=== PATIENT | female | born 1965 | race Caucasian/White ===

== ENCOUNTER → 2024-04-25 10:46 | Outpatient (REF) | payer BC, SELFPAY | LOC: WDC 10:46 | PROVIDERS: ATTENDING PHYSICIAN Student in an Organized Health Care Education/Training Program | DX: Z12.31 Encounter for screening mammogram for malignant neoplasm of breast (principal) | CPT/HCPCS: 77063; 77067 ==

== ENCOUNTER → 2025-04-27 11:40 | Outpatient (REF) | payer BC, SELFPAY | LOC: WDC 11:40 | PROVIDERS: ATTENDING PHYSICIAN Student in an Organized Health Care Education/Training Program | DX: Z12.31 Encounter for screening mammogram for malignant neoplasm of breast (principal) | CPT/HCPCS: 77063; 77067 ==

== ENCOUNTER 2025-09-16 12:01 | Emergency (ER) | payer BC, SELFPAY ==
[2025-09-16 12:05] VITALS: BP 170/102
[2025-09-16 12:41] LABS: Hematocrit 43.6 % (37.0-47.0); Hemoglobin 14.4 g/dL (12.0-16.0); Mean Corp Hgb Conc. 33.0 g/dL (33.0-37.0); Mean Corpuscular Volume 84.8 fL (81.0-99.0); Nucleated Red Blood Cells % 0 %; Platelet Count 267 10^3/uL (130-400); Red Cell Dist. Width 14.1 % (11.5-14.5)
--- NOTE | 2025-09-16 12:45 | ED.GENMED ---
History of Present Illness
General
Chief Complaint: Breathing Problem
Time Seen by Provider: 09/16/25 12:45
History of Present Illness
History of Present Illness:
FOCUSED PAST MEDICAL HISTORY
- Asthma
REVIEW OF OLD RECORDS
- No old records available for review in [facility]
Note:
CHIEF COMPLAINT(S)
Shortness of breath and potential asthma exacerbation.
HISTORY OF PRESENT ILLNESS
The patient is a 60-year-old female with a history suggestive of asthma, presenting with shortness of breath. Symptoms onset recently, and the patient describes symptoms consistent with an asthma exacerbation. The patient reports feeling 'like an
asthma attack.' Breathing is noted to be somewhat decreased. The patient denies usual use of supplemental oxygen at home. She does not recall recent steroid use, and it has been at least 10 years since she would have needed them.
The patient recently completed a course of Nitrofurantoin (Macrobid) for a urinary tract infection as of last night, and she inquired about its potential role in triggering asthma symptoms. However, she has not experienced any history of chills or
significant systemic symptoms that would indicate other causative factors, such as a virus, though this was considered a possibility.
Initial assessment reveals the patient to have decreased breath sounds with mild respiratory distress. Her oxygen saturation was documented at 92% on room air, and she presented with tachycardia.
PAST MEDICAL AND SURGICAL HISTORY
Resolved urinary tract infection treated with Macrobid.
CHRONIC MEDICAL CONDITIONS SIGNIFICANTLY AFFECTING CARE
Asthma.
REVIEW OF SYSTEMS
- Respiratory: Shortness of breath, decreased breath sounds noted during examination.
- Cardiovascular: Tachycardia.
- General: Fever noticed.
PHYSICAL EXAM
General: Mild respiratory distress.
Respiratory: Decreased breath sounds, room air saturation at 92%, tachycardic.
Cardiovascular: Tachycardic without noted wheezing.
PLAN
- Administer breathing treatments including intravenous magnesium and intravenous steroids.
- Order chest X-ray to assess the pulmonary status.
- Provide Tylenol for fever management.
- Consider the potential role of a viral infection in symptom exacerbation.
- Monitor oxygen saturation and overall respiratory status.
DIFFERENTIAL DIAGNOSIS
The Differential Diagnosis includes, in no particular order and is not limited to:
1. Asthma exacerbation
2. Viral respiratory infection
3. Bacterial pneumonia
4. Congestive heart failure
5. Chronic obstructive pulmonary disease (COPD) exacerbation
6. Pulmonary embolism
7. Allergic reaction
8. Medication side effects
9. Anxiety-induced hyperventilation
10. Bronchitis
RADIOLOGY
- Chest x-ray obtained which shows no obvious sign of pneumonia
EKG
- Sinus 104, normal axis, nonspecific ST abnormality
LABS
- White count 14.4, hemoglobin normal, lactic 1.9
UPDATE
-SUMMARY OF ENCOUNTER
The patient, a 60-year-old female with a history of asthma, presented to the emergency department with symptoms indicative of an asthma exacerbation. She experienced shortness of breath, decreased breath sounds, and an oxygen saturation of 92% on
room air. Upon arrival, she was found to be tachycardic. The patient recently recovered from a urinary tract infection treated with Nitrofurantoin, and she questioned its potential role in her current respiratory symptoms. She denied any use of
supplemental oxygen at home or recent steroid use. The patient was managed with breathing treatments including intravenous magnesium and steroids, which improved her symptoms. Influenza and COVID-19 tests were negative, but her asthma exacerbation
was suspected to be possibly triggered by a viral illness due to the presence of fever. The patient was also given Tylenol for fever management. Blood cultures were taken to rule out bacterial infection, with no immediate concerns observed.
DISPOSITION
The patient is deemed stable for discharge with outpatient management.
ASSESSMENT
Asthma exacerbation, most likely triggered by a viral infection.
EMERGENCY TREATMENTS ADMINISTERED
- Intravenous magnesium
- Intravenous steroids
PLAN
- Prescribe Albuterol inhaler
- Initiate oral steroids for a course of four days
- Recommend Tylenol for fever management
- Advise the patient to return if symptoms worsen
INDEPENDENT REVIEW OF LABS AND INTERPRETATION OF TESTS
My independent review includes negative influenza and COVID-19 test results.
PATIENT EDUCATION AND COUNSELING
The patient was advised on the potential viral nature of her asthma exacerbation. She was instructed to use Tylenol for fever and chills and to return to the emergency department if her symptoms worsened.
FOLLOW-UP INSTRUCTIONS
Please follow up with your primary care physician or labor law professor to ensure proper management of asthma and assess response to treatment.
MEDICATION RECONCILIATION
- Albuterol inhaler prescribed
- Oral steroids initiated for a few days
MEDICAL DECISION MAKING
1. Number and Complexity of Problems Addressed:
Chronic conditions affecting care: Asthma
DDx list: Asthma exacerbation, Viral respiratory infection, Bacterial pneumonia, Congestive heart failure, COPD exacerbation, Pulmonary embolism, Allergic reaction, Medication side effects, Anxiety-induced hyperventilation, Bronchitis
2. Data:
Category 1:
- Influenza and COVID-19 tests conducted with negative results.
Category 3:
- Discussion of management with the patient regarding potential discharge and prescriptions.
3. Risk:
Prescription medication was prescribed: Albuterol inhaler and oral steroids.
DIAGNOSIS
- Asthma exacerbation (ICD-10: J45.901)
I did have the patient walk around in the Emergency Department and her sat stated 93% on room air and she reports overall significant improvement. Will start steroids and give new inhaler prescription.
Phy Exam
Physical Exam
Physical Exam:
See HPI
Scores
Heart Failure Risk
Heart Failure Risk Score: Not Applicable
Sepsis
Sepsis Screening
Sepsis Assessment: Sepsis Ruled Out
Sepsis Screen
Sepsis Screen: Sepsis Ruled Out
Date: 09/16/25
Time: 15:54
Course
Orders/Labs/Results
Orders:
Orders
09/16/25 12:09
EKG [Electrocardiogram (*1)] Urgent
Reason for Study: Shortness of Breath
EKG- Treatment ONCE
09/16/25 12:34
COVID-19 Antigen Urgent
Source: Nasal Swab
Complete Blood Count/With Diff Urgent
Comprehensive Metabolic Panel Urgent
Lactic Acid Urgent
Blood Culture Urgent
ROMAN Source: Blood/Venous
Specimen Description:
Influenza A+B Rapid Molecular Urgent
ROMAN Source: Nasal Swab
Specimen Description:
09/16/25 12:39
Blood Culture Urgent
ROMAN Source: Blood/Venous
Specimen Description:
09/16/25 13:12
Acetaminophen [Tylenol] 1,000 mg PO NOW STA
Albuterol Nebs [Ventolin Nebules] 2.5 mg INH R NOW STA
Dexamethasone Sod Phosphate [Decadron] 10 mg IV NOW STA
Magnesium Sulfate 2 Gram/50 ml [Magnesium Sulfate] 2 gram in 50 ml IV NOW
09/16/25 13:13
CR Chest Portable - 1 View Urgent
Comment:
Reason For Exam: sob asthma fever
Reason Study Needs to be Portable: Unable to Transport
Abnormal Lab Results
09/16/25
12:34
WBC 14.4 H 10^3/uL
(4.8-10.8)
Abs Immat Gran (auto) 0.1 H 10^3/uL
(0-0.05)
Absolute Neuts (auto) 12.3 H 10^3/uL
(1.4-6.5)
Absolute Lymphs (auto) 0.6 L 10^3/uL
(1.2-3.4)
Absolute Monos (auto) 0.8 H 10^3/uL
(0.1-0.6)
Neutrophils % 85.4 H %
(42.2-75.2)
Lymphocytes % 4.5 L %
(20.5-51.1)
Glucose 129 H mg/dl
(70-99)
Total Bilirubin 1.6 H mg/dl
(0.2-1.3)
Total Protein 8.8 H g/dl
(6.3-8.2)
09/16/25 12:34
09/16/25 12:34
Vital Signs
Initial and Last Documented VS:
Initial Vital Signs
Temp Pulse Resp BP Pulse Ox
38.8 C H 120 30 170/102 91
09/16/25 12:05 09/16/25 12:05 09/16/25 12:05 09/16/25 12:05 09/16/25 12:05
Last Documented Vital Signs
Temp Pulse Resp BP Pulse Ox
38.8 C H 95 15 129/82 91
09/16/25 12:05 09/16/25 15:00 09/16/25 15:00 09/16/25 15:00 09/16/25 15:15
*Pulse Oximetry
SaO2: 91
Nasal Cannula flow liters per minute: 4
Oxygen Mode of Delivery: Room air
Patient hypoxic: yes (Borderline hypoxic at times initially 90 to 91% and then 93% at time of discharge)
*Critical Care Note
Total Time (30-74mins, 75-104mins- exclusive of procedures): Not Applicable
ED Attending Note
-
Portions of this chart may have been created with voice recognition software.� Occasional wrong word or��sound alike� substitutions may have occurred due to the inherent limitations of voice recognition software.
Discharge Plan
Departure
Patient Disposition: Home (Routine Discharge)
Date of Disposition: 09/16/25
Time of Disposition: 15:13
Patient with high blood pressure during this ER visit?: Yes
Discharge Problem:
Asthma attack
Instructions: Asthma in adults - ED (DC), BLOOD PRESSURE
Prescriptions:
New
albuterol sulfate [Ventolin HFA] 90 mcg/actuation HFA aerosol inhaler
2 puff inhalation Q6H PRN (Reason: shortness of breath or wheezing) Qty: 8.5 0RF
prednisone 50 mg tablet
50 mg PO DAILY Qty: 4 0RF
Referrals:
Frank Shrestha MD [Family Provider, Family Practice]
Activity Restrictions/Additional Instructions:
Your white blood cell count is elevated however there is no sign of pneumonia on x-ray and I did not hear sounds of pneumonia when I listen to you. Your flu and COVID test are both negative. We gave you IV magnesium, IV steroids, and breathing
treatments. I sent a prescription for a new inhaler and steroids to your pharmacy. Return if worse or other concerns.
Interventions
Interventions:
*Risk Screen - Suicide Last Done: 09/16/25 12:05
*General Assessment Last Done: 09/16/25 12:05
*Neglect/Abuse Screening Last Done: 09/16/25 12:05
*ED- Fall Risk Assessment Last Done: 09/16/25 12:05
*ED COVID-19 Vaccine History Last Done: 09/16/25 12:05
*ED Influenza Vaccine History Last Done: 09/16/25 12:05
*Nursing Disposition Last Done: 09/16/25 15:52
ED- Cardiac Assessment Last Done: 09/16/25 12:42
ED- Pulmonary Assessment Last Done: 09/16/25 12:42
Discharge Date and Time
Print Language: GERMAN
[2025-09-16 12:55] LABS: ALT (SGPT) 25 U/L (0-35); AST (SGOT) 22 U/L (14-36); Albumin 5.0 g/dl (3.5-5.0); Alkaline Phosphatase 110 U/L (38-126); Blood Urea Nitrogen 11 mg/dl (7-17); Calcium 9.7 mg/dl (8.4-10.2); Carbon Dioxide 23 mmol/L (22-30); Chloride 104 mmol/L (98-107); Glucose 129 mg/dl (70-99); Potassium 4.2 mmol/L (3.5-5.1); Sodium 136 mmol/L (135-145); Total Protein 8.8 g/dl (6.3-8.2); eGFR > 60.00
[2025-09-16 13:06] LABS: COVID-19 Antigen Negative (Negative)
[2025-09-16] MEDS: VENTOLIN NEBULES 2.5 MG INH (13:20)
[2025-09-16] MEDS: DECADRON 10 MG IV (13:20)
[2025-09-16] MEDS: MAGNESIUM SULFATE 50 IV (13:20)
[2025-09-16] MEDS: TYLENOL 1000 MG PO (13:20)
[2025-09-16 14:57] VITALS: BP 141/91
[2025-09-16 15:00] VITALS: BP 129/82
== END 2025-09-16 15:57 | disposition home or self-care (01) ==
LOC: EMR 12:01
PROVIDERS: EMERGENCY PHYSICIAN Emergency Medicine; FAMILY PHYSICIAN Family Medicine
DX: J45.901 Unspecified asthma with (acute) exacerbation (principal); Z11.52 Encounter for screening for COVID-19
CPT/HCPCS: 96374; 96375; 94640; 99284; 71045; 80053; 83605; 85025; 87040; 87502; 87811; 93005